=== PATIENT | female | born 1945 ===

== ENCOUNTER 2024-12-02 10:35 | Outpatient (REF) | payer MEDICARE, SELFPAY ==
--- OUTSIDE RECORDS SUMMARY | 2024-12-02 10:44 | XMS_ITS | Clinical Summary ---
Author Organization [facility] Address [address] [place] [id number] Care Team Providers Care Bean Roaster Name Role Phone Unavailable Primary Care Provider Unavailabl e Encounters Date Type Department Care Team Description 11/10/2024 [place] [id number] Chase Gann APRN.MAINTENANCE TEAM MEMBER 11/03/2024 [place] [address] Chase Gann APRN.MAINTENANCE TEAM MEMBER 10/30/2024 Progress Note [employer] [facility] Labor Relations Manager [address] [place] [address] Kristin Snow MD 10/29/2024 [place] [address] Chase Gann APRN.MAINTENANCE TEAM MEMBER 10/26/2024 [place] [address] Chase Gann APRN.MAINTENANCE TEAM MEMBER 10/20/2024 [place] [address] Chase Gann APRN.MAINTENANCE TEAM MEMBER 10/13/2024 [place] [address] Chase Gann APRN.MAINTENANCE TEAM MEMBER 10/08/2024 Progress Note [employer] Labor Relations Manager [address] [place] [address] Kristin Snow MD 10/07/2024 [place] [address] Chase Gann APRN.MAINTENANCE TEAM MEMBER 09/29/2024 [place] [address] Chase Gann APRN.MAINTENANCE TEAM MEMBER 09/25/2024 [place] [address] Chase Gann APRN.MAINTENANCE TEAM MEMBER 09/21/2024 [place] [address] Chase Gann APRN.MAINTENANCE TEAM MEMBER 09/17/2024 [place] [address] Chase Gann APRN.MAINTENANCE TEAM MEMBER 09/15/2024 [place] [address] Chase Gann APRN.MAINTENANCE TEAM MEMBER 09/11/2024 Progress Note [facility] [address] [place] [address] Kristin Snow MD from Last 3 Months Social History Tobacco Use Types Packs/Day Years Used Date Smoking Tobacco: Never Assessed Comments Unknown Sex and Gender Information Value Date Recorded Sex Assigned at Not on file Legal Sex Female 10:16 AM EST Gender Identity Not on file Sexual Orientation Not on file Plan of Treatment Not on file Insurance MEDICARE
--- OUTSIDE RECORDS SUMMARY | 2024-12-02 10:44 | XMS_ITS | Continuity of Care Document ---
Author Organization [facility] Address [address] [place] [id number] Phone [phone] Care Team Providers Care Order Builder Loader Name Role Phone Adrián Jameson MD Care Team Information Manager Of Production [phone] Assessments Date Code Description Provider 01/06/2010 584.9 Acute Kidney Failure, Unspec ified Brennen Vega M.D. 01/06/2010 401.1 Hypertension Neli Vega M.D. 01/06/2010 782.3 Edema Donovan Wasserman 01/06/2010 791.0 Proteinuria Donovan Wasserman 01/05/2010 584.9 Acute Kidney Failure, Unspec ified Brennen Vega M.D. 01/05/2010 401.1 Hypertension Neli Vega M.D. 01/05/2010 782.3 Edema Donovan Wasserman 01/05/2010 791.0 Proteinuria Donovan Wasserman 01/03/2010 584.9 Acute Kidney Failure, Unspec ified Brennen Vega M.D. 01/03/2010 401.1 Hypertension Neli Vega M.D. 01/03/2010 782.3 Edema Donovan Wasserman 01/03/2010 791.0 Proteinuria Donovan Wasserman
--- OUTSIDE RECORDS SUMMARY | 2024-12-02 10:44 | XMS_ITS | Clinical Summary ---
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
[2024-12-02 11:03] LABS: Hematocrit 38.1 % (36.0-48.0); Hemoglobin 12.8 g/dL (12.0-16.0); Mean Corpuscular HGB Conc 33.6 g/dL (29.9-35.2); Mean Corpuscular Hemoglobin 30.6 pg (26.7-34.0); Mean Corpuscular Volume 91.1 fL (81.0-99.0); Mean Platelet Volume 9.8 fL (9.5-13.5); Platelet Count 302 10^3/uL (150-450); Red Blood Count 4.18 10^6/uL (4.20-5.40); Red Cell Distribution Width 13.2 % (11.0-15.0); White Blood Count 4.9 10^3/uL (4.0-11.0)
[2024-12-02 11:04] LABS: Bilirubin Urine NEGATIVE (NEGATIVE); Blood Urine NEGATIVE (NEGATIVE); Clarity Urine CLEAR (CLEAR); Color Urine LT. YELLOW (YELLOW); Glucose Urine UA NEGATIVE (NEGATIVE); Ketones Urine NEGATIVE (NEGATIVE); Leukocyte Esterase Urine NEGATIVE (NEGATIVE); Nitrite Urine NEGATIVE (NEGATIVE); Protein Urine NEGATIVE (NEG/TRACE); Specific Gravity Urine >=1.030 (1.005-1.025); Urobilinogen Urine 0.2 EU/dL (0.2-1.0); pH Urine 5.5 (5.0-9.0)
[2024-12-02 11:13] LABS: Bacteria Urine TRACE #/HPF (NONE SEEN); Cast Seen? NONE SEEN #/LPF (NONE SEEN); Crystals Seen? None Seen #/HPF (None Seen); Mucus Urine NONE SEEN (NONE SEEN); RBC Urine NONE SEEN #/HPF (0-2); Squamous Epithelial Cell Urine FEW #/LPF (NONE/RARE); Urine Culture Indicated NO; WBC Urine NONE SEEN #/HPF (NONE SEEN)
[2024-12-02 11:35] LABS: Creatinine Urine Random 121.98 mg/dL (20.00-300.00); Protein Creatinine Ratio Urine 0.16; Total Protein Urine Random 19.3 mg/dL (<=11.9)
[2024-12-02 11:41] LABS: Alanine Aminotransferase 17 U/L (14-59); Albumin Globulin Ratio 0.9; Albumin Level 3.4 g/dL (3.4-5.0); Alkaline Phosphatase 124 U/L (46-116); Aspartate Amino Transferase 18 U/L (15-37); BUN Creatinine Ratio 28.4; Bilirubin Total 0.4 mg/dL (0.2-1.0); Calcium 9.2 mg/dL (8.5-10.1); Carbon Dioxide 26.1 mmol/L (21.0-32.0); Chloride 103 mmol/L (98-107); Chol HDL Ratio 2.7; Cholesterol 224 mg/dL (<=200); Estimated GFR (African America >60 (>=60 mL/min/1.73m^2); Estimated GFR (Non-African Ame >60 (>=60 mL/min/1.73m^2); Globulin 3.7 g/dL; Glucose 86 mg/dL (74-106); HDL Cholesterol 84 mg/dL (40-60); Magnesium 1.9 mg/dL (1.8-2.4); Potassium 4.1 mmol/L (3.5-5.1); Sodium 139 mmol/L (136-145); Total Protein 7.1 g/dL (6.4-8.2); Triglycerides 53 mg/dL (<=150); Uric Acid 4.7 mg/dL (2.6-6.0); VLDL CHOLESTEROL 10.6 mg/dL
[2024-12-03 13:09] LABS: PTH, Intact 25 pg/mL (15-65)
== END 2024-12-02 10:36 | disposition home or self-care (01) ==
LOC: LAB 10:35
PROVIDERS: PCP Nurse Practitioner Family; Visit Provider Nurse Practitioner Family
DX: E83.42 Hypomagnesemia (principal); I12.9 Hypertensive chronic kidney disease with stage 1 through stage 4 chronic kidney disease, or unspecified chronic kidney disease; N18.30 Chronic kidney disease, stage 3 unspecified; E78.5 Hyperlipidemia, unspecified
CPT/HCPCS: 36415; 80053; 80061; 81001; 82306; 82570; 83735; 83970; 84156; 84550; 85027